=== PATIENT | female | born 1995 | race American Indian/Alaskan Native ===

== ENCOUNTER 2016-11-01 14:19 | Emergency (ER) | payer BC ==
[2016-11-01 14:34] VITALS: BP 144/81
[2016-11-01] MEDS ORDERED: PROVENTIL IH ONE (16:01)
--- NOTE | 2016-11-01 16:01 | Emergency Department Report ---
Chief Complaint: Abdominal Pain Stated Complaint: COLD SYMPTOMS Time Seen by Provider: 11/01/16 15:57 - HPI History of Present Illness: 21-year-old -[place] female with a past medical history of asthma comes in for complaint of right lower abdominal pain 2 days C vaginal bleeding she's gone through 2 pads so far today. Patient also complains of nonproductive cough complaints of nausea vomiting reports that it was a streak of bright red blood in her emesis yesterday. She also complains of shortness of breathing denies any painful urination denies any fever - Exam Vital Signs: Vital Signs 11/01/16 14:30 Temperature 98.4 F Pulse Rate 92 H Respiratory 16 Rate Blood Pressure 144/81 O2 Sat by Pulse 97 Oximetry Physical Exam: She is alert and oriented 3. Cardio : S1-S2 regular rate and rhythm Respiratory: Wheezing right and left lobes Abdomen: Soft bowel sounds throughout no tenderness MSE screening note: Focused history and physical exam performed. Due to findings the following was ordered: Appropriate labs have been ordered for this patient we will order albuterol treatment patient be evaluated in main ER ED Disposition for MSE Condition: Stable Instructions: Abdominal Pain (ED)
[2016-11-01 17:14] LABS: Alanine Aminotransferase 13 units/L (7-56); Albumin 4.4 g/dL (3.9-5); Albumin/Globulin Ratio 1.4 %; Alkaline Phosphatase 76 units/L (35-129); Anion Gap 17 mmol/L; Basophils % (Auto) 0.5 % (0.0-1.8); Bilirubin,Total 0.3 mg/dL (0.1-1.2); Blood Urea Nitrogen 18 mg/dL (7-17); Calcium 8.9 mg/dL (8.4-10.2); Carbon Dioxide 25 mmol/L (22-30); Chloride 99.6 mmol/L (98-107); Eosinophils % (Auto) 12.8 % (0.0-4.3); Glucose 95 mg/dL (65-100); Hematocrit 42.4 % (30.3-42.9); Hemoglobin 13.9 gm/dl (10.1-14.3); Lipase 46 units/L (13-60); Mean Corpuscular HGB Conc 33 % (30-34); Mean Corpuscular Hemoglobin 31 pg (28-32); Mean Corpuscular Volume 93 fl (79-97); Platelet Count 300 K/mm3 (140-440); Potassium 4.3 mmol/L (3.6-5.0); Red Blood Count 4.55 M/mm3 (3.65-5.03); Red Cell Distribution Width 14.7 % (13.2-15.2); Sodium 137 mmol/L (137-145); Total Protein 7.5 g/dL (6.3-8.2)
[2016-11-01 23:40] LABS: Bilirubin,Urine NEG (Negative); Blood,Urine LG (Negative); Ketones,Urine NEG (Negative); Leukocyte Esterase,Urine NEG (Negative); Mucus,Urine FEW /HPF; Nitrite,Urine NEG (Negative); Protein,Urine <15 mg/dL mg/dL (Negative); Urobilinogen,Urine < 2.0 mg/dL (<2.0)
[2016-11-02] MEDS ORDERED: DUONEB 0.5 MG-3 MG/3 ML SOLN IH ONE (00:46)
[2016-11-02] MEDS ORDERED: ZOFRAN IV ONE (00:47)
[2016-11-02] MEDS ORDERED: MORPHINE IV ONE (00:47)
[2016-11-02] MEDS ORDERED: NACL ONE (00:58)
[2016-11-02] MEDS ORDERED: TORADOL IV ONE (01:21)
--- NOTE | 2016-11-02 01:47 | Emergency Department Report ---
ED Abdominal Pain HPI - General Chief Complaint: Abdominal Pain Stated Complaint: COLD SYMPTOMS Time Seen by Provider: 11/01/16 15:57 Source: patient Mode of arrival: Ambulatory Limitations: No Limitations - History of Present Illness Initial Comments: 21-year-old female with a past medical history of asthma presents to the hospital with abdominal pain and vaginal bleeding. Patient states she had a normal period October 31. She started bleeding again 2 days ago. She states that she is having spotting and has used 2 pads today prior to my evaluation. Patient complains of constant right lower quadrant and right lower back pain. Pain is stabbing tolerated passive 10 intensity. Worse with palpation and movement. Patient had 4 episodes of vomiting since yesterday and states there was some streaks of blood. Patient also complaining of a nonproductive cough and intermittent wheezing. No reports of fever or abdominal surgery. - Related Data Previous Rx's Medication Instructions Recorded Last Taken Type ALBUTEROL Inhaler [ProAir HFA 2 puff IH QID PRN #1 inhalation 11/02/16 Unknown Rx Inhaler] Ibuprofen [Motrin] 800 mg PO Q8HR PRN #30 tablet 11/02/16 Unknown Rx Ondansetron [Zofran Odt] 4 mg PO Q8HR PRN #20 tab.rapdis 11/02/16 Unknown Rx traMADol [Ultram 50 MG tab] 50 mg PO Q6HR PRN #20 tablet 11/02/16 Unknown Rx Allergies Allergy/AdvReac Type Severity Reaction Status Date / Time No Known Allergies Allergy Unverified 11/01/16 14:30 ED Review of Systems ROS: Stated complaint: COLD SYMPTOMS Other details as noted in HPI Comment: All other systems reviewed and negative Other: Constitutional: No fevers chills Eyes: No eye pain visual changes ENT: No ear pain or throat pain Neck: Denies pain Respiratory: As per HPI Cardiovascular: Denies chest pain, palpitations, syncope GI: As per HPI : Denies dysuria Musculoskeletal: Denies joint swelling Skin: Denies rash, lesions, erythema Neurologic: Denies headache, numbness, weakness Psychiatric: Denies suicidal ideation, hallucinations Hematological/lymphatic: Denies easy bruising, lymphadenopathy ED Past Medical Hx - Past Medical History Previous Medical History?: Yes Hx Asthma: Yes - Surgical History Past Surgical History?: No - Social History Smoking Status: Never Smoker Substance Use Type: Alcohol - Medications Home Medications: Home Medications Medication Instructions Recorded Confirmed Last Taken Type ALBUTEROL Inhaler [ProAir HFA 2 puff IH QID PRN #1 inhalation 11/02/16 Unknown Rx Inhaler] Ibuprofen [Motrin] 800 mg PO Q8HR PRN #30 tablet 11/02/16 Unknown Rx Ondansetron [Zofran Odt] 4 mg PO Q8HR PRN #20 tab.rapdis 11/02/16 Unknown Rx traMADol [Ultram 50 MG tab] 50 mg PO Q6HR PRN #20 tablet 11/02/16 Unknown Rx ED Physical Exam - General Limitations: No Limitations - Other Other exam information: General: No limitations, patient is alert in no acute distress Head exam: Atraumatic, normocephalic Eyes exam: Normal appearance, pupils equal reactive to light, extraocular movements intact ENT: Moist mucous membrane, normal oropharynx Neck exam: Normal inspection, full range of motion, no meningismus nontender Respiratory exam: Mild expiratory wheeze, no tachypnea or accessory muscle Cardiovascular: Normal rate and rhythm, normal heart sounds Abdomen: Soft, nondistended, generalized lower abdominal tenderness greatest in the right lower quadrant, with normal bowel sounds, no rebound, or guarding : Vaginal bleeding moderate, no CMT or adnexal tenderness Extremity: Full range of motion normal inspection no deformity Back: Normal Inspection, full range of motion, no tenderness Neurologic: Alert, oriented x3, cranial nerves intact, no motor or sensory deficit Psychiatric: normal affect, normal mood Skin: Warm, dry, intact ED Course Vital Signs 11/01/16 11/01/16 11/02/16 14:30 23:25 01:55 Temperature 98.4 F Pulse Rate 92 H Respiratory 16 18 18 Rate Blood Pressure 144/81 O2 Sat by Pulse 97 99 Oximetry 11/02/16 01:56 Temperature Pulse Rate Respiratory 18 Rate Blood Pressure O2 Sat by Pulse Oximetry - Reevaluation(s) Reevaluation #1: 11/02/16 02:51 pt improved ED Medical Decision Making - Lab Data Result diagrams: 11/01/16 16:42 11/01/16 16:42 Wet prep negative Lab Results 11/01/16 11/01/16 11/01/16 Range/Units 16:42 16:42 23:00 WBC 10.0 (4.5-11.0) K/mm3 RBC 4.55 (3.65-5.03) M/mm3 Hgb 13.9 (10.1-14.3) gm/dl Hct 42.4 (30.3-42.9) % MCV 93 (79-97) fl MCH 31 (28-32) pg MCHC 33 (30-34) % RDW 14.7 (13.2-15.2) % Plt Count 300 (140-440) K/mm3 Lymph % (Auto) 29.1 (13.4-35.0) % Fisher % (Auto) 6.1 (0.0-7.3) % Eos % (Auto) 12.8 H (0.0-4.3) % Baso % (Auto) 0.5 (0.0-1.8) % Lymph # 2.9 (1.2-5.4) K/mm3 Fisher # 0.6 (0.0-0.8) K/mm3 Eos # 1.3 H (0.0-0.4) K/mm3 Baso # 0.1 (0.0-0.1) K/mm3 Seg Neutrophils % 51.5 (40.0-70.0) % Seg Neutrophils # 5.1 (1.8-7.7) K/mm3 Sodium 137 (137-145) mmol/L Potassium 4.3 (3.6-5.0) mmol/L Chloride 99.6 (98-107) mmol/L Carbon Dioxide 25 (22-30) mmol/L Anion Gap 17 mmol/L BUN 18 H (7-17) mg/dL Creatinine 0.8 (0.7-1.2) mg/dL Estimated GFR > 60 ml/min BUN/Creatinine Ratio 22.50 % Glucose 95 (65-100) mg/dL Calcium 8.9 (8.4-10.2) mg/dL Total Bilirubin 0.3 (0.1-1.2) mg/dL AST 17 (5-40) units/L ALT 13 (7-56) units/L Alkaline Phosphatase 76 (35-129) units/L Total Protein 7.5 (6.3-8.2) g/dL Albumin 4.4 (3.9-5) g/dL Albumin/Globulin Ratio 1.4 % Lipase 46 (13-60) units/L Urine Color Yellow (Yellow) Urine Turbidity Clear (Clear) Urine pH 5.0 (5.0-7.0) Ur Specific Nucla 1.028 (1.003-1.030) Urine Protein <15 mg/dl (Negative) mg/dL Urine Glucose (UA) Neg (Negative) mg/dL Urine Ketones Neg (Negative) mg/dL Urine Blood Lg (Negative) Urine Nitrite Neg (Negative) Urine Bilirubin Neg (Negative) Urine Urobilinogen < 2.0 (<2.0) mg/dL Ur Leukocyte Esterase Neg (Negative) Urine WBC (Auto) 1.0 (0.0-6.0) /HPF Urine RBC (Auto) 17.0 (0.0-6.0) /HPF U Epithel Cells (Auto) 2.0 (0-13.0) /HPF Urine Mucus Few /HPF Urine HCG, Qual Negative (Negative) - Radiology Data Radiology results: report reviewed CT abdomen and pelvis IV contrast: No acute findings. Normal appendix. Uterus and ovaries unremarkable with minimal free fluid fluid in the right adnexal region - Medical Decision Making Patient's symptoms improved ED treatment. No signs of acute infection at this time the. No signs of . No signs of anemia. Patient stable for symptomatic treatment and outpatient follow-up with [facility]. Patient received morphine, Zofran, Toradol, and a duonebs for wheezing - Differential Diagnosis renal colic, ovarian cyst, , ectopic, DUB, UTI, PID, vaginitis Critical Care Time: No Critical care attestation.: If time is entered above; I have spent that time in minutes in the direct care of this critically ill patient, excluding procedure time. ED Disposition Clinical Impression: DUB (dysfunctional uterine bleeding), Lower abdominal pain, Asthma exacerbation Disposition: DISCHARGED TO HOME OR SELFCARE Is pt being admited?: No Does the pt Need Aspirin: No Condition: Stable Instructions: Abdominal Pain (ED), Dysfunctional Uterine Bleeding (ED), Asthma (ED) Additional Instructions: Follow-up with [facility] for further workup and evaluation. Take the medication as prescribed. Return if symptoms worsen.Your gonorrhea and chlamydia tests are pending and take approximately 3-4 days result. You may obtain results in medical records with a photo ID. You may also obtain results through the follow -up doctor office via medical record request. Prescriptions: ALBUTEROL Inhaler [ProAir HFA Inhaler] 2 puff IH QID PRN #1 inhalation PRN Reason: Shortness Of Breath Ibuprofen [Motrin] 800 mg PO Q8HR PRN #30 tablet PRN Reason: Pain Ondansetron [Zofran Odt] 4 mg PO Q8HR PRN #20 tab.rapdis PRN Reason: Nicotine Cravings traMADol [Ultram 50 MG tab] 50 mg PO Q6HR PRN #20 tablet PRN Reason: Pain Referrals: CURRY CASTAÑEDA MD [Staff Physician] - 3-5 Days (graphic art designer ) [facility] [Provider Group] - 3-5 Days Forms: Work/School Release Form(ED) Time of Disposition: 03:01
--- NOTE | 2016-11-02 01:51 | Cat Scan Report ---
FINAL REPORT PROCEDURE: CT ABDOMEN PELVIS W CON TECHNIQUE: Computerized axial tomography of the abdomen and pelvis was performed after the IV injection of iodinated nonionic contrast. HISTORY: rlq pain, abnl vag bleeding COMPARISON: No prior studies are available for comparison. FINDINGS: Visualized lower thorax: No significant abnormality. Liver: Normal size and attenuation. Spleen: Normal size and attenuation. Gallbladder and biliary system: Normal. Pancreas: Normal. Adrenals: Normal. Kidneys: There are no kidney stones. There is no hydronephrosis.. GI tract: There is no bowel obstruction, colitis or enteritis. The appendix is normal.. Lymph nodes and mesentery: Normal. Vasculature: Normal. Bladder: Normal. Reproductive organs: The uterus and ovaries are unremarkable. There is minimal free pelvic fluid in the right adnexal region. There is no free air, abscess or adenopathy.. Peritoneum: No free fluid. Musculoskeletal structures: No significant abnormality. Other: None. IMPRESSION: There are no kidney stones. There is no hydronephrosis.. There is no bowel obstruction, colitis or enteritis. The appendix is normal.. The uterus and ovaries are unremarkable. There is minimal free pelvic fluid in the right adnexal region. There is no free air, abscess or adenopathy..
== END 2016-11-02 03:26 | disposition home or self-care (01) ==
LOC: ED 14:19
DX: N93.8 Other specified abnormal uterine and vaginal bleeding (principal); J45.901 Unspecified asthma with (acute) exacerbation
CPT/HCPCS: 36415; 74177; 80053; 81001; 81025; 83690; 85025; 87210; 87591; 96374; 96375; 99285; J1885; J2270; J2405; Q9967